=== PATIENT | male | born 1935 | race Caucasian/White ===

== ENCOUNTER 2018-11-11 09:34 | Emergency (ER) | payer MEDICARE, BC ==
--- NOTE | 2018-11-11 11:38 | RAD ---
LEFT HIP TWO VIEWS: History: Hip pain. FINDINGS: No fracture. Femoral head contour is normal. No significant degenerative change. No osseous abnormali ty seen. IMPRESSION: Unremarkable left hip. POS: [facility]
--- NOTE | 2018-11-11 11:39 | RAD ---
AP PELVIS: History: Pelvic pain. Hip pain. FINDINGS: The pelvis appears intact. No osseous abnormality identified. Both hips are unremarkable with no sign ificant degenerative change. IMPRESSION: No acute findings. POS: [facility]
[2018-11-11] MEDS ORDERED: Ketorolac Tromethamine 30 MG/ML VIAL ONE (12:08)
== END 2018-11-11 12:40 | disposition home or self-care (01) ==
LOC: ERS 09:34
DX: M62.830 Muscle spasm of back (principal); Z79.899 Other long term (current) drug therapy
CPT/HCPCS: 72170; 96372; J1885